=== PATIENT | female | born 1965 | race American Indian/Alaskan Native ===

== ENCOUNTER 2018-08-25 10:03 | Outpatient (CLI) | payer OTHER ==
--- NOTE | 2018-08-27 08:43 | Mammography Report ---
BILATERAL DIGITAL SCREENING MAMMOGRAM with CAD : 08/25/18 10:03:00 CLINICAL: Routine screening. COMPARISON:01/12/13 FINDINGS: The breasts are heterogeneously dense, which may obscure small masses. No mass, architectural distortion or suspicious calcifications. IMPRESSION: No mammographic evidence of malignancy. BI-RADS CATEGORY: 1 - - Negative RECOMMENDATION: Routine mammographic screening in one year. COMMENT: Patient follow-up letters are generated by our [employer] application.
== END 2018-08-25 10:04 | disposition home or self-care (01) ==
LOC: MAMMO 10:03
PROVIDERS: ATTEND Family Medicine
DX: Z12.31 Encounter for screening mammogram for malignant neoplasm of breast (principal)
CPT/HCPCS: 77067

== ENCOUNTER 2019-06-14 09:05 | Outpatient (CLI) | payer OTHER ==
[2019-06-14] MEDS ORDERED: SINCALIDE 5 MCG VIAL IV ONE (10:47)
[2019-06-14] MEDS ORDERED: WATER FOR INJ Sterile (PF) 10 ML IV SCH (11:00)
--- NOTE | 2019-06-14 13:34 | Nuclear Medicine Report ---
NUCLEAR MEDICINE HEPATOBILIARY SCAN INDICATION: R10.13 EPIGASTRIC PAIN. TECHNIQUE: Radiotracer: Tc-99m mebrofenin (by IV): 5.0 mCi. Gallbladder Stimulant: 1.47 mcg of Kinevac FINDINGS: Hepatic activity: Normal. Biliary activity: Normal. Common bile duct activity at 25 minutes. Gallbladder activity: Normal at 40 minutes. Small bowel activity: Normal at 35 minutes. The gallbladder ejection fraction is severely decreased measuring 5%. The patient reports pain, cramps and nausea during the infusion Kinevac. IMPRESSION: No evidence for biliary obstruction. Markedly decreased gallbladder ejection fraction measuring 5%. Consider biliary dyskinesia. Signer Name: James Maki Jr, MD Signed: 06/14/2019 1:29 PM Workstation Name: [id number]
== END 2019-06-14 09:06 | disposition home or self-care (01) ==
LOC: NM 09:05
PROVIDERS: ATTEND Internal Medicine Gastroenterology
DX: R10.13 Epigastric pain (principal)
CPT/HCPCS: 78227; A9537; J2805

== ENCOUNTER 2020-03-16 08:49 | Outpatient (CLI) | payer OTHER ==
--- NOTE | 2020-03-16 11:46 | Ultrasound Report ---
EXAMINATION: Bilateral Complete Breast Ultrasound, 03/16/2020 INDICATION: Pain and tenderness in both breasts. COMPARISON: Screening mammogram from 03/06/2020. Right breast ultrasound from 01/01/2011. FINDINGS: Complete sonographic evaluation of all 4 quadrants and retroareolar region was performed. No significant abnormality in the left breast. In the 7:00 position of the right breast immediately a djacent to the nipple is a wider than tall hypoechoic solid lesion with smooth margins measuring 1.3 x 0.5 x 1.0 cm with minimal internal color flow and no calcification. No associated posterior acousti c shadowing is seen. No other significant abnormality of the right breast. IMPRESSION: Right breast mass as above is similar in appearance to the adjacent nipple and is likely benign. A fo llow-up limited right breast ultrasound in 6 months is recommended. Follow up recommendation: Ultrasound BI-RADS Category 3: Probably Benign. Followup in 6 months. Signer Name: Jerry Anand MD Signed: 03/16/2020 11:41 AM Workstation Name: [id number]
== END 2020-03-16 08:50 | disposition home or self-care (01) ==
LOC: MAMMO 08:49
PROVIDERS: ATTEND Family Medicine
DX: N63.13 Unspecified lump in the right breast, lower outer quadrant (principal); N64.4 Mastodynia